=== PATIENT | male | born 1955 ===

== ENCOUNTER 2020-04-12 14:57 | Outpatient (REF) | payer SELFPAY ==
[2020-04-15 09:14] LABS: SARS-CoV-2 RNA Undetected (Undetected); SARS-CoV-2 Specimen Source Nasal
== END 2020-04-12 15:17 ==
LOC: NCHCN 14:57
PROVIDERS: PCP Nurse Practitioner Family; Visit Provider Nurse Practitioner Family
DX: Z11.59 Encounter for screening for other viral diseases (principal)
CPT/HCPCS: U0003